=== PATIENT | female | born 1960 | race African-American/Black ===

== ENCOUNTER 2019-07-18 13:05 | Emergency (ER) | payer OTHER ==
[~2019-07-18] VITALS: Ht 170.2 cm; Wt 81.0 kg
[2019-07-18 14:29] LABS: BASOPHILS % 0.5 % (0.0-2.0); EOSINOPHILS % 0.8 % (0.0-5.0); HEMATOCRIT. 41.1 % (36.0-48.0); HEMOGLOBIN. 13.4 g/dL (12.0-16.0); LYMPHOCYTES % 17.3 % (20.0-50.0); MEAN CORPUSCULAR HEMOGLOBIN 26.3 pg (28.0-32.0); MEAN CORPUSCULAR VOLUME 80.8 fL (81.0-99.0); MEAN PLATELET VOLUME 10.4 fl (7.4-10.4); MONOCYTES % 7.5 % (2.0-8.0); NEUTROPHILS % 73.9 % (40.0-76.0); PLATELET 126 x1000/uL (130-400); RED BLOOD CELL COUNT 5.08 mill/uL (4.2-5.4); RED CELL DISTRIBUTION WIDTH 14.9 % (11.6-14.6)
[2019-07-18 14:36] LABS: CHLORIDE 109 mEq/L (98-107)
[2019-07-18] MEDS ORDERED: OLANZAPINE 10 MG/VIAL IM ONE ×2 (14:45→15:45)
[2019-07-18 15:12] LABS: *AMPHETAMINES SCREEN URINE NEGATIVE (NEGATIVE); *BARBITURATES SCREEN URINE NEGATIVE (NEGATIVE)
[2019-07-18 15:13] LABS: *BENZODIAZEPINES SCREEN URINE NEGATIVE (NEGATIVE); *COCAINE SCREEN URINE PRESUMTIVE POSITIVE (NEGATIVE); METHADONE URINE SCREEN NEGATIVE (NEGATIVE); OPIATES URINE SCREEN NEGATIVE (NEGATIVE)
[2019-07-18 15:14] LABS: CANNABINOID URINE SCREEN NEGATIVE (NEGATIVE); PHENCYCLIDINE URINE SCREEN NEGATIVE (NEGATIVE)
[2019-07-18] MEDS ORDERED: LORAZEPAM 2MG/ML CPJ IM ONE (15:15)
[2019-07-18] MEDS ORDERED: DIPHENHYDRAMINE 50MG/ML VIAL IM ONE (15:15)
[2019-07-18] MEDS ORDERED: LORAZEPAM 2MG/ML CPJ IV NR (15:45)
[2019-07-18 16:38] LABS: ETHANOL BLOOD < 10 mg/dL
[2019-07-19] MEDS ORDERED: ACETAMINOPHEN 500MG TABLET PO ONE (03:00)
[2019-07-19] MEDS ORDERED: DIPHENHYDRAMINE 50MG/ML VIAL IM ONE (06:30)
[2019-07-19] MEDS ORDERED: OLANZAPINE 10 MG/VIAL IM ONE (06:30)
[2019-07-19] MEDS ORDERED: LORAZEPAM 2MG/ML CPJ IM ONE (06:30)
[2019-07-19 11:00] VITALS: BP 155/82
== END 2019-07-19 12:27 | disposition home or self-care (01) ==
LOC: ER 14:15
DX: F23 Brief psychotic disorder (principal); F14.10 Cocaine abuse, uncomplicated; I11.9 Hypertensive heart disease without heart failure; F32.9 Major depressive disorder, single episode, unspecified; F17.200 Nicotine dependence, unspecified, uncomplicated
CPT/HCPCS: 36415; 71045; 80053; 80305; 80307; 80320; 80329; 82962; 83880; 84484; 85025; 93005; 96372; 99284; J1200; J2060; J3490; G0480

== ENCOUNTER 2020-02-25 09:17 | Emergency (ER) | payer OTHER ==
[~2020-02-25] VITALS: Ht 162.6 cm; Wt 73.0 kg
[2020-02-25] MEDS ORDERED: ZIPRASIDONE MESYLATE 20MG/VIAL IM STA (09:35)
[2020-02-25] MEDS ORDERED: LORAZEPAM 2MG/ML CPJ IV ONE (10:30)
[2020-02-25 10:37] LABS: CHLORIDE 110 mEq/L (98-107)
[2020-02-25 10:40] LABS: ETHANOL BLOOD < 10 mg/dL
[2020-02-25 10:42] LABS: BASOPHILS % 0.7 % (0.0-2.0); EOSINOPHILS % 0.8 % (0.0-5.0); HEMOGLOBIN. 15.1 g/dL (12.0-16.0); LYMPHOCYTES % 27.6 % (20.0-50.0); MEAN CORPUSCULAR HEMOGLOBIN 26.8 pg (28.0-32.0); MEAN CORPUSCULAR VOLUME 81.5 fL (81.0-99.0); MONOCYTES % 7.4 % (2.0-8.0); NEUTROPHILS % 63.5 % (40.0-76.0); RED BLOOD CELL COUNT 5.64 mill/uL (4.2-5.4); RED CELL DISTRIBUTION WIDTH 15.3 % (11.6-14.6)
[2020-02-25] MEDS ORDERED: CLONIDINE 0.1MG TABLET PO ONE (10:45)
[2020-02-25 11:16] LABS: CLARITY URINE TURBID (CLEAR); COLOR URINE YELLOW (YELLOW); KETONES URINE TRACE (NEGATIVE); LEUKOCYTE ESTERASE URINE 2+ (NEGATIVE); NITRITE URINE POSITIVE (NEGATIVE); OCCULT BLOOD URINE TRACE (NEGATIVE); PH URINE 5.5 (4.5-8.0); PROTEIN URINE 1+ (NEGATIVE); SPECIFIC GRAVITY URINE 1.022 (1.005-1.030)
[2020-02-25 11:38] LABS: *BARBITURATES SCREEN URINE NEGATIVE (NEGATIVE); *BENZODIAZEPINES SCREEN URINE PRESUMTIVE POSITIVE (NEGATIVE); *COCAINE SCREEN URINE PRESUMTIVE POSITIVE (NEGATIVE); OPIATES URINE SCREEN NEGATIVE (NEGATIVE)
[2020-02-25 11:39] LABS: CANNABINOID URINE SCREEN NEGATIVE (NEGATIVE)
[2020-02-25 11:47] LABS: METHADONE URINE SCREEN NEGATIVE (NEGATIVE)
[2020-02-25 11:47] LABS: PLATELET 144 x1000/uL (130-400)
[2020-02-25 11:50] LABS: *AMPHETAMINES SCREEN URINE NEGATIVE (NEGATIVE)
[2020-02-25 11:59] LABS: PHENCYCLIDINE URINE SCREEN NEGATIVE (NEGATIVE)
[2020-02-25 12:08] VITALS: BP 151/108
== END 2020-02-25 12:12 | disposition home or self-care (01) ==
LOC: ER 09:40
DX: T40.5X1A Poisoning by cocaine, accidental (unintentional), initial encounter (principal); F23 Brief psychotic disorder; F22 Delusional disorders; I11.9 Hypertensive heart disease without heart failure; F32.9 Major depressive disorder, single episode, unspecified; Y92.488 Other paved roadways as the place of occurrence of the external cause
CPT/HCPCS: 36415; 80053; 80305; 80320; 81003; 85025; 87077; 87086; 87186; 96372; 99285; J3486; 99283; G0480

== ENCOUNTER 2020-03-10 16:51 | Inpatient (IN) | payer OTHER, MEDICAID ==
[~2020-03-10] VITALS: Ht 167.6 cm; Wt 84.4 kg
[2020-03-10] MEDS ORDERED: HALOPERIDOL LACTATE 5MG/ML VIAL IM STA ×2 (17:07→17:29)
[2020-03-10] MEDS ORDERED: LORAZEPAM 2MG/ML CPJ IM STA (17:07)
[2020-03-10] MEDS ORDERED: DIPHENHYDRAMINE 50MG/ML VIAL IM STA (17:29)
[2020-03-10] MEDS ORDERED: SODIUM CHLORIDE 0.9% 1,000 ML IV ONE (17:29)
[2020-03-10] MEDS ORDERED: LORAZEPAM 2MG/ML CPJ IM ONE (17:30)
[2020-03-10 18:33] LABS: BASOPHILS % 0.7 % (0.0-2.0); CHLORIDE 115 mEq/L (98-107); EOSINOPHILS % 0.2 % (0.0-5.0); HEMATOCRIT. 40.5 % (36.0-48.0); HEMOGLOBIN. 13.3 g/dL (12.0-16.0); LYMPHOCYTES % 17.2 % (20.0-50.0); MEAN CORPUSCULAR HEMOGLOBIN 26.4 pg (28.0-32.0); MEAN CORPUSCULAR VOLUME 80.2 fL (81.0-99.0); MEAN PLATELET VOLUME 10.4 fl (7.4-10.4); MONOCYTES % 7.9 % (2.0-8.0); PLATELET 122 x1000/uL (130-400); RED BLOOD CELL COUNT 5.05 mill/uL (4.2-5.4); RED CELL DISTRIBUTION WIDTH 15.3 % (11.6-14.6)
[2020-03-10 18:37] LABS: ETHANOL BLOOD < 10 mg/dL
[2020-03-10 18:48] LABS: CLARITY URINE TURBID (CLEAR); COLOR URINE YELLOW (YELLOW); KETONES URINE 1+ (NEGATIVE); LEUKOCYTE ESTERASE URINE 1+ (NEGATIVE); NITRITE URINE NEGATIVE (NEGATIVE); OCCULT BLOOD URINE NEGATIVE (NEGATIVE); PH URINE 5.5 (4.5-8.0); PROTEIN URINE 1+ (NEGATIVE); UROBILINOGEN URINE 0.2 E.U./dL (0.2-1.0)
[2020-03-10 19:02] LABS: *AMPHETAMINES SCREEN URINE NEGATIVE (NEGATIVE); *BARBITURATES SCREEN URINE NEGATIVE (NEGATIVE); *BENZODIAZEPINES SCREEN URINE NEGATIVE (NEGATIVE); *COCAINE SCREEN URINE PRESUMTIVE POSITIVE (NEGATIVE)
[2020-03-10 19:03] LABS: CANNABINOID URINE SCREEN NEGATIVE (NEGATIVE); METHADONE URINE SCREEN NEGATIVE (NEGATIVE); OPIATES URINE SCREEN NEGATIVE (NEGATIVE); PHENCYCLIDINE URINE SCREEN NEGATIVE (NEGATIVE)
[2020-03-10] MEDS ORDERED: MAGNESIUM 1 G PREMIX 100 ML IV ONE (19:15)
[2020-03-10] MEDS ORDERED: KCL 20MEQ/100ML PREMIX 100 ML IV ONE (19:15)
[2020-03-10] MEDS ORDERED: CEFTRIAXONE 1 G PREMIX 50 ML IV ONE (19:15)
[2020-03-10] MEDS ORDERED: DOCUSATE SODIUM 100MG CAPSULE PO PRN (23:00)
[2020-03-10] MEDS ORDERED: ACETAMINOPHEN 325MG TABLET PO PRN (23:00)
[2020-03-10] MEDS ORDERED: ONDANSETRON HCL 4MG/2ML INJ IV PRN (23:00)
[2020-03-10] MEDS ORDERED: HYDROCODONE/ACETAMINOPHEN 5/325MG TABLET PO PRN (23:00)
[2020-03-10] MEDS ORDERED: IPRATROPIUM/ALBUTEROL 0.5-3(2.5)MG/3ML NEB NEB PRN (23:00)
[2020-03-10] MEDS ORDERED: GUAIFENESIN 200MG/10ML SUGAR FREE UDC PO PRN (23:00)
[2020-03-10] MEDS ORDERED: MAGNESIUM/ALUMINUM HYDROXIDE/SIMETHICONE 30ML UDC PO PRN (23:00)
[2020-03-10] MEDS: SODIUM CHLORIDE 0.45% 1,000 ML IV SCH (23:30)
[2020-03-11 06:00] VITALS: BP 161/91
[2020-03-11 06:11] VITALS: BP 161/91
[2020-03-11 07:55] LABS: BASOPHILS % 0.8 % (0.0-2.0); EOSINOPHILS % 1.4 % (0.0-5.0); HEMATOCRIT. 41.2 % (36.0-48.0); HEMOGLOBIN. 13.4 g/dL (12.0-16.0); LYMPHOCYTES % 21.6 % (20.0-50.0); MEAN CORPUSCULAR HEMOGLOBIN 26.4 pg (28.0-32.0); MEAN PLATELET VOLUME 10.2 fl (7.4-10.4); MONOCYTES % 10.1 % (2.0-8.0); NEUTROPHILS % 66.1 % (40.0-76.0); PLATELET 115 x1000/uL (130-400); RED BLOOD CELL COUNT 5.08 mill/uL (4.2-5.4); RED CELL DISTRIBUTION WIDTH 15.1 % (11.6-14.6)
[2020-03-11 08:00] VITALS: BP 168/85
[2020-03-11 08:07] LABS: CHLORIDE 115 mEq/L (98-107)
[2020-03-11 08:14] LABS: LDL CHOLESTEROL 152 mg/dL (5-100)
[2020-03-11 08:15] LABS: CREATINE KINASE 913 IU/L (26-192); CREATINE KINASE MB FRACTION 3.4 ng/mL (0.5-3.6); HDL CHOLESTEROL 42 mg/dL (40-59)
[2020-03-11] MEDS: CLONIDINE 0.1MG TABLET PO PRN ×2 (09:46→17:00)
[2020-03-11 12:00] VITALS: BP 159/90
[2020-03-11] MEDS: SODIUM CHLORIDE 0.45% 1,000 ML IV SCH (12:39)
[2020-03-11] MEDS: HALOPERIDOL 5MG TABLET PO PRN (13:45)
[2020-03-11 16:00] VITALS: BP 170/95
[2020-03-11] MEDS: LORAZEPAM 0.5MG TABLET PO PRN (16:59)
[2020-03-11 20:00] VITALS: BP 161/86
[2020-03-11 21:12] LABS: CREATINE KINASE MB FRACTION 2.1 ng/mL (0.5-3.6)
[2020-03-11 21:23] LABS: CREATINE KINASE 1179 IU/L (26-192)
[2020-03-12] VITALS: BP 112/79
[2020-03-12] MEDS: SODIUM CHLORIDE 0.45% 1,000 ML IV SCH ×3 (00:26→23:52)
[2020-03-12 04:00] VITALS: BP 142/68
[2020-03-12 08:00] VITALS: BP 156/77
[2020-03-12 12:00] VITALS: BP 162/83
[2020-03-12] MEDS: CLONIDINE 0.1MG TABLET PO PRN (13:24)
[2020-03-12 16:00] VITALS: BP 116/58
[2020-03-12 20:00] VITALS: BP 161/82
[2020-03-12] MEDS: ATORVASTATIN CALCIUM 20MG TABLET PO SCH (21:03)
[2020-03-12] MEDS: QUETIAPINE FUMARATE 50MG TABLET PO SCH (21:03)
[2020-03-13] VITALS (9 sets, daily range): BP systolic 121–197; BP diastolic 71–90
[2020-03-13] MEDS: CLONIDINE 0.1MG TABLET PO PRN ×2 (00:23→15:40)
[2020-03-13] MEDS: QUETIAPINE FUMARATE 50MG TABLET PO SCH ×2 (08:53→20:39)
[2020-03-13] MEDS: SODIUM CHLORIDE 0.45% 1,000 ML IV SCH (09:47)
[2020-03-13] MEDS: HALOPERIDOL 5MG TABLET PO PRN (10:38)
[2020-03-13] MEDS: AMLODIPINE 5MG TABLET PO SCH (13:55)
[2020-03-13 15:42] LABS: CHLORIDE 113 mEq/L (98-107)
[2020-03-13 15:52] LABS: CREATINE KINASE 750 IU/L (26-192)
[2020-03-13] MEDS: LORAZEPAM 0.5MG TABLET PO PRN (17:12)
[2020-03-13] MEDS: ATORVASTATIN CALCIUM 20MG TABLET PO SCH (20:39)
[2020-03-14] VITALS: BP 147/94
[2020-03-14 04:00] VITALS: BP 183/88
[2020-03-14] MEDS: SODIUM CHLORIDE 0.45% 1,000 ML IV SCH ×3 (05:28→14:41)
[2020-03-14] MEDS: CLONIDINE 0.1MG TABLET PO PRN (05:54)
[2020-03-14 08:30] VITALS: BP 157/80
[2020-03-14] MEDS: QUETIAPINE FUMARATE 50MG TABLET PO SCH ×2 (09:07→20:51)
[2020-03-14] MEDS: AMLODIPINE 5MG TABLET PO SCH (09:08)
[2020-03-14 11:38] VITALS: BP 138/77
[2020-03-14] MEDS ORDERED: LORA-249 PO (12:31)
[2020-03-14] MEDS ORDERED: ATOR20TA PO (12:31)
[2020-03-14] MEDS ORDERED: QUET50TA PO (12:31)
[2020-03-14] MEDS ORDERED: AMLO5TAB88 PO (12:31)
[2020-03-14] MEDS: LORAZEPAM 0.5MG TABLET PO PRN (16:21)
[2020-03-14 16:30] VITALS: BP 132/74
[2020-03-14 20:00] VITALS: BP 117/64
[2020-03-14] MEDS: ATORVASTATIN CALCIUM 20MG TABLET PO SCH (20:51)
[2020-03-15] VITALS: BP 162/81
[2020-03-15 04:00] VITALS: BP 175/78
[2020-03-15] MEDS: SODIUM CHLORIDE 0.45% 1,000 ML IV SCH (05:04)
[2020-03-15 08:00] VITALS: BP 160/81
[2020-03-15] MEDS: QUETIAPINE FUMARATE 50MG TABLET PO SCH (08:09)
[2020-03-15] MEDS: AMLODIPINE 5MG TABLET PO SCH (08:09)
[2020-03-15 11:05] VITALS: BP 145/85
[2020-03-15] MEDS ORDERED: AMLO5TAB88 PO (12:25)
[2020-03-15] MEDS ORDERED: AMLODIPINE 5MG TABLET PO SCH (17:00)
== END 2020-03-15 12:00 | disposition home or self-care (01) | DRG 885 ==
LOC: ER 16:58 → MICUSO 20:27 → 5WST 03-11 05:52
PROVIDERS: ADMIT Internal Medicine; ATTEND Internal Medicine
DX: F22 Delusional disorders (principal); G92 Toxic encephalopathy; E87.6 Hypokalemia; I10 Essential (primary) hypertension; F17.200 Nicotine dependence, unspecified, uncomplicated; F41.9 Anxiety disorder, unspecified; I25.10 Atherosclerotic heart disease of native coronary artery without angina pectoris; F32.9 Major depressive disorder, single episode, unspecified; Z98.891 History of uterine scar from previous surgery
CPT/HCPCS: 36415; 71045; 80048; 80053; 80061; 80305; 80307; 80320; 80329; 81003; 82550; 82553; 84443; 84484; 85025; 93005; 93970; 99285; J0696; J1200; J1630; J2060; J3475; J3480; J7030; G0480

== ENCOUNTER 2020-05-17 08:41 | Emergency (ER) | payer MEDICARE, MEDICAID ==
[~2020-05-17] VITALS: Ht 172.7 cm; Wt 73.0 kg
[~2020-05-17 08:41] MED LIST: AMLO5TAB88 PO; ATOR20TA PO; LORA-249 PO; QUET50TA PO
[2020-05-17 09:11] LABS: EOSINOPHILS % 1.9 % (0.0-5.0); HEMATOCRIT. 42.9 % (36.0-48.0); HEMOGLOBIN. 14.3 g/dL (12.0-16.0); LYMPHOCYTES % 29.1 % (20.0-50.0); MEAN CORPUSCULAR HEMOGLOBIN 26.9 pg (28.0-32.0); MEAN CORPUSCULAR VOLUME 80.7 fL (81.0-99.0); MEAN PLATELET VOLUME 9.6 fl (7.4-10.4); MONOCYTES % 7.1 % (2.0-8.0); NEUTROPHILS % 60.9 % (40.0-76.0); PLATELET 163 x1000/uL (130-400); RED BLOOD CELL COUNT 5.32 mill/uL (4.2-5.4)
[2020-05-17 09:16] LABS: CHLORIDE 111 mEq/L (98-107)
[2020-05-17 09:20] LABS: ETHANOL BLOOD < 10 mg/dL
[2020-05-17 09:51] LABS: CLARITY URINE CLOUDY (CLEAR); COLOR URINE YELLOW (YELLOW); KETONES URINE NEGATIVE (NEGATIVE); LEUKOCYTE ESTERASE URINE 2+ (NEGATIVE); NITRITE URINE POSITIVE (NEGATIVE); OCCULT BLOOD URINE NEGATIVE (NEGATIVE); PH URINE 5.5 (4.5-8.0); PROTEIN URINE 1+ (NEGATIVE); SPECIFIC GRAVITY URINE 1.023 (1.005-1.030); UROBILINOGEN URINE 0.2 E.U./dL (0.2-1.0)
[2020-05-17] MEDS ORDERED: CEFTRIAXONE 1 G PREMIX 50 ML IV ONE (10:00)
[2020-05-17 13:00] VITALS: BP 166/98
== END 2020-05-17 13:48 | disposition home or self-care (01) ==
LOC: ER 08:41
DX: G40.909 Epilepsy, unspecified, not intractable, without status epilepticus (principal); N39.0 Urinary tract infection, site not specified; I11.9 Hypertensive heart disease without heart failure; F32.9 Major depressive disorder, single episode, unspecified
CPT/HCPCS: 36415; 70450; 71045; 80053; 80320; 81003; 84484; 85025; 87077; 87086; 87186; 93005; 96365; 99285; J0696; G0480

== ENCOUNTER 2022-03-11 08:08 | Emergency (ER) | payer OTHER, MEDICAID ==
[~2022-03-11] VITALS: Ht 167.6 cm; Wt 96.0 kg
[2022-03-11 08:10] VITALS: BP 144/78
[2022-03-11] MEDS ORDERED: LORAZEPAM 1MG TABLET PO ONE (09:15)
[2022-03-11] MEDS ORDERED: FLUOXETINE HCL 10 MG CAPSULE PO SCH (10:30)
[2022-03-11] MEDS ORDERED: OLANZAPINE 10 MG/VIAL IM ONE (11:00)
[2022-03-11] MEDS ORDERED: HALOPERIDOL LACTATE 5MG/ML VIAL IM ONE ×2 (11:45→13:45)
[2022-03-11] MEDS ORDERED: OLANZAPINE 5MG TABLET PO SCH (21:00)
== END 2022-03-11 13:55 | disposition home or self-care (01) ==
LOC: ER 08:08
DX: R45.1 Restlessness and agitation (principal); F20.9 Schizophrenia, unspecified; F32.9 Major depressive disorder, single episode, unspecified; I10 Essential (primary) hypertension; Z79.899 Other long term (current) drug therapy
CPT/HCPCS: 96372; 99291; J1630; J3490